=== PATIENT | female | born 1955 | race African-American/Black ===

== ENCOUNTER 2017-09-11 06:09 | Day surgery (SDC) | payer OTHER ==
[~2017-09-11] VITALS: Ht 167.6 cm; Wt 127.9 kg
[~2017-09-11 06:09] MED LIST: CLON.1 PO; OLMESARTAN-HCT1 EAC2 PO; QUET300 PO
[2017-09-11] MEDS ORDERED: OLME20 PO (07:05)
[2017-09-11] MEDS ORDERED: DILT300 PO (07:10)
== END 2017-09-11 09:28 | disposition home or self-care (01) ==
LOC: ORSCSDS 06:09
PROVIDERS: Orthopaedic Surgery
PROC: 0PSV04Z Reposition Left Finger Phalanx with Internal Fixation Device, Open Approach (ICD-10-PCS; principal; 2017-09-11 07:30)
DX: S62.631A Displaced fracture of distal phalanx of left index finger, initial encounter for closed fracture (principal); I10 Essential (primary) hypertension; F17.210 Nicotine dependence, cigarettes, uncomplicated; E66.01 Morbid (severe) obesity due to excess calories; Z68.42 Body mass index [BMI] 45.0-49.9, adult; Z79.899 Other long term (current) drug therapy
CPT/HCPCS: J0330; J1100; J2250; J2405; J3010

== ENCOUNTER 2022-08-19 12:34 | Day surgery (SDC) | payer OTHER ==
[~2022-08-19] VITALS: Ht 170.2 cm; Wt 117.4 kg
[~2022-08-19 12:34] MED LIST changes: +DILT300 PO; +OLME20 PO
[2022-08-19] MEDS ORDERED: ALLO100 (13:08)
[2022-08-19] MEDS ORDERED: Vitamin C100 MG (13:08)
[2022-08-19] MEDS ORDERED: THERA-D2000 UNIT (13:09)
[2022-08-19] MEDS ORDERED: FERSU300 (13:09)
[2022-08-19] MEDS ORDERED: METF500 (13:10)
[2022-08-19] MEDS ORDERED: Benicar40 MG (13:10)
--- NOTE | 2022-08-19 13:15 | NUR ---
08/19/22 1315 Johnna Chavez 1311 TETRACAINE TO RIGHT EYE 1312 PLEDGET TO RIGHT EYE BY [facility].[place]
[2022-08-19 14:43] VITALS: BP 93/64
== END 2022-08-19 14:41 | disposition home or self-care (01) ==
LOC: ORSCSDS 12:34
PROVIDERS: Ophthalmology
PROC: 08DJ3ZZ Extraction of Right Lens, Percutaneous Approach (ICD-10-PCS; principal; 2022-08-19 14:00)
DX: E11.36 Type 2 diabetes mellitus with diabetic cataract (principal); H25.11 Age-related nuclear cataract, right eye; G47.33 Obstructive sleep apnea (adult) (pediatric); I10 Essential (primary) hypertension; Z79.84 Long term (current) use of oral hypoglycemic drugs; Z79.899 Other long term (current) drug therapy; G47.30 Sleep apnea, unspecified
CPT/HCPCS: 82947; J2001; J2250; J3010; J3301; J7040; V2632

== ENCOUNTER 2022-08-26 12:36 | Day surgery (SDC) | payer OTHER ==
[~2022-08-26] VITALS: Ht 170.2 cm; Wt 116.7 kg
[~2022-08-26 12:36] MED LIST changes: +ALLO100; +Benicar40 MG; +FERSU300; +METF500; +THERA-D2000 UNIT; +Vitamin C100 MG
--- NOTE | 2022-08-26 13:41 | NUR ---
08/26/22 1341 Giovanna Gibbons TETRACAINE TO LEFT EYE AT 1328 PLEDGET TO LEFT EYE AT 1329 BY [facility].[place]
[2022-08-26 14:33] VITALS: BP 111/82
--- NOTE | 2022-08-26 14:33 | NUR ---
08/26/22 1437 FLOR MOSQUERA AND SELENA MICHAELS, STUDENT NURSES ASSISTING WITH CARE.
== END 2022-08-26 14:51 | disposition home or self-care (01) ==
LOC: ORSCSDS 12:36
PROVIDERS: Ophthalmology
PROC: 08DK3ZZ Extraction of Left Lens, Percutaneous Approach (ICD-10-PCS; principal; 2022-08-26 14:00)
DX: E11.36 Type 2 diabetes mellitus with diabetic cataract (principal); H25.12 Age-related nuclear cataract, left eye; Z96.1 Presence of intraocular lens; G47.33 Obstructive sleep apnea (adult) (pediatric); I10 Essential (primary) hypertension; Z87.891 Personal history of nicotine dependence; Z79.899 Other long term (current) drug therapy; Z79.84 Long term (current) use of oral hypoglycemic drugs
CPT/HCPCS: 82947; J2250; J3010; J3301; J7040; V2632

== ENCOUNTER 2023-01-26 09:01 | Day surgery (SDC) | payer OTHER | END 2023-02-13 23:09 | disposition home or self-care (01) | LOC: MOI US 09:01 → MOI MAM 09:30 → MOI US 09:30 | DX: N63.10 Unspecified lump in the right breast, unspecified quadrant (principal) | CPT/HCPCS: 19083; 77065; 88305; 88360; A4648 ==